=== PATIENT | female | born 1960 | race Hispanic/Latino ===

== ENCOUNTER 2018-07-05 21:53 | Emergency (ER) | payer OTHER ==
[2018-07-05] MEDS ORDERED: HYDROCODONE/ACETAMINOPHEN 10/325 MG TAB ONE (23:17)
== END 2018-07-05 23:30 | disposition home or self-care (01) ==
LOC: EDH 21:53
DX: B02.9 Zoster without complications (principal); I10 Essential (primary) hypertension; E11.9 Type 2 diabetes mellitus without complications; Z90.49 Acquired absence of other specified parts of digestive tract; Z88.8 Allergy status to other drugs, medicaments and biological substances

== ENCOUNTER 2021-03-18 09:47 | Emergency (ER) | payer BC, OTHER ==
[~2021-03-18] VITALS: Ht 157.5 cm; Wt 89.4 kg
[2021-03-18 09:48] VITALS: BP 151/84
[2021-03-18] MEDS ORDERED: IBUP-2070 PO (11:01)
== END 2021-03-18 11:14 | disposition home or self-care (01) ==
LOC: EDH 09:47
DX: S93.601A Unspecified sprain of right foot, initial encounter (principal); E11.9 Type 2 diabetes mellitus without complications; W01.0XXA Fall on same level from slipping, tripping and stumbling without subsequent striking against object, initial encounter; Y93.89 Activity, other specified; Y92.89 Other specified places as the place of occurrence of the external cause; Y99.8 Other external cause status
CPT/HCPCS: 73610; 73630